=== PATIENT | male | born 1995 | race Hispanic/Latino ===

== ENCOUNTER 2018-01-19 22:16 | Emergency (ER) | payer SELFPAY ==
[2018-01-19 22:34] LABS: Bilirubin Negative (Negative); Blood, Urine Moderate (Negative); Clarity CLEAR (Clear); Glucose, Urine (Dipstick) Negative (Negative); Leukocyte Negative (Negative); Nitrite Negative (Negative); Protein, Urine (Dipstick) 30 mg/dL (Neg-Trace); Specific Gravity, Urine 1.037 (1.002-1.036)
[2018-01-19 22:36] LABS: Bacteria/HPF None Seen HPF (None Seen); Hyaline Casts/LPF 0-3 HYALINE CAST LPF (0-3 Hyaline); Pathc Cast-AUWi Flag 0.29 (0-2.49); RBC/HPF GREATER THAN 50-TNTC HPF (0-3); Squamous Epithelial 0-3 HPF (0-3); WBC/HPF 0-3 HPF (0-3)
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
[2018-01-20] MEDS ORDERED: Ketorolac Tromethamine 30 MG/ML VIAL ONE (00:10)
== END 2018-01-20 00:20 | disposition home or self-care (01) ==
LOC: ERS 22:16
DX: M54.5 Low back pain (principal); F17.220 Nicotine dependence, chewing tobacco, uncomplicated
CPT/HCPCS: 74176; 81003; 81015; 96374; J1885

== ENCOUNTER 2018-01-20 22:31 | Emergency (ER) | payer SELFPAY | END 2018-01-20 23:00 | disposition home or self-care (01) | LOC: ERS 22:31 | DX: M54.5 Low back pain (principal); F17.220 Nicotine dependence, chewing tobacco, uncomplicated | CPT/HCPCS: 99283 ==

== ENCOUNTER 2018-12-29 22:36 | Emergency (ER) | payer SELFPAY ==
[2018-12-29] MEDS ORDERED: Ibuprofen 800 MG TAB ONE (23:09)
== END 2018-12-29 23:16 | disposition home or self-care (01) ==
LOC: ERS 22:36
DX: S00.431A Contusion of right ear, initial encounter (principal); F17.220 Nicotine dependence, chewing tobacco, uncomplicated; W22.8XXA Striking against or struck by other objects, initial encounter
CPT/HCPCS: 99283

== ENCOUNTER 2019-02-14 00:26 | Emergency (ER) | payer SELFPAY ==
--- NOTE | 2019-02-14 07:54 | RAD ---
RIGHT HAND 3 VIEWS: FINDINGS: No evidence of fracture. No osseous abnormality. IMPRESSION: No acute finding. POS: [facility]
== END 2019-02-14 01:11 | disposition home or self-care (01) ==
LOC: ERS 00:26
DX: M77.9 Enthesopathy, unspecified (principal)

== ENCOUNTER 2019-02-20 23:33 | Emergency (ER) | payer SELFPAY ==
[2019-02-21] MEDS ORDERED: traMADol HCl 50 MG TAB ONE (00:43)
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
== END 2019-02-21 01:12 | disposition home or self-care (01) ==
LOC: ERS 23:33
DX: G44.309 Post-traumatic headache, unspecified, not intractable (principal)
CPT/HCPCS: 70450

== ENCOUNTER 2019-05-31 21:42 | Emergency (ER) | payer SELFPAY ==
--- NOTE | 2019-05-31 22:16 | RAD ---
XR Chest 1 View Portable HISTORY: Chest pain COMPARISON: 04/05/2014 study. FINDINGS: Heart size is within normal limits considering technique. Mediastinal structures are unrema rkable. The lungs are clear of infiltrates. No signs of failure. IMPRESSION: No active intrathoracic disease.
[2019-05-31] MEDS ORDERED: Naproxen 500 MG TAB ONE (22:29)
== END 2019-05-31 22:35 | disposition home or self-care (01) ==
LOC: ERS 21:42
DX: M94.0 Chondrocostal junction syndrome [Tietze] (principal)
CPT/HCPCS: 71045; 93005

== ENCOUNTER 2019-08-20 23:11 | Emergency (ER) | payer SELFPAY ==
--- NOTE | 2019-08-20 23:51 | RAD ---
CHEST ONE VIEW: 08/20/19 HISTORY: Chest pain. COMPARISON: Radiograph 05/31/19. FINDINGS: The lungs are clear. No pneumothorax. No effusion. The cardiac silhouette and mediastinal contours ar e within normal limits. No acute osseous abnormality. IMPRESSION: No acute intrathoracic abnormality. POS: [facility]
[2019-08-21 00:01] LABS: #Eosinphils 0.3 thou/uL (0.0-0.7); #Lymphocytes 2.4 thou/uL (1.20-3.40); #Monocytes 0.6 thou/uL (0.11-0.59); #Neutrophils 5.5 thou/uL (1.40-6.50); %Basophils 0.2 % (0.0-1.0); %Eosinophils 3.6 % (0.0-10.0); %Monocytes 7.2 % (0.0-10.0); %Neutrophils 62.1 % (42.0-75.0); Hemoglobin 15.8 g/dL (14.0-18.0); Mean Corpuscular HGB CONC 33.8 g/dL (32.0-36.0); Mean Corpuscular Hemoglobin 30.5 pg (27.0-31.0); Mean Corpuscular Volume 90.3 fL (78.0-98.0); Platelet Count 162 thou/uL (130-400); RBC Distribution Width 11.3 % (11.5-14.5); Red Blood Cell (RBC) Count 5.19 mill/uL (4.70-6.10); White Blood Cell (WBC) Count 8.8 thou/uL (4.8-10.8)
--- NOTE | 2019-08-21 00:05 | CT ---
CT BRAIN WITHOUT CONTRAST: 08/20/19 HISTORY: Arm pain, numbness and tingling. COMPARISON: CT brain 02/21/19. FINDINGS: No acute hemorrhage or infarct. No midline shift or mass effect. Ventricular size and extra-axial CSF spaces are normal. The calvarium is intact. The paranasal sinuses and mastoids are clear. IMPRESSION: No acute intracranial abnormality. POS: [facility]
[2019-08-21 00:21] LABS: ALT (SGPT) 29 U/L (8-55); AST (SGOT) 26 U/L (5-34); Albumin 4.8 g/dL (3.5-5.0); Alkaline Phosphatase 93 U/L (40-110); Anion Gap 14 mmol/L (10-20); BUN (Urea Nitrogen) 18 mg/dL (8.9-20.6); Bilirubin, Total 0.8 mg/dL (0.2-1.2); Calc. Creatinine Clearance 0 mL/min (70-130); Calcium 9.8 mg/dL (7.8-10.44); Carbon Dioxide 27 mmol/L (22-29); Chloride 102 mmol/L (98-107); Estimated GFR-MDRD 87; Globulin 3.7 g/dL (2.4-3.5); Glucose 74 mg/dL (70-105); Protein, Total 8.5 g/dL (6.0-8.3); Sodium 139 mmol/L (136-145)
== END 2019-08-21 00:42 | disposition home health service (06) ==
LOC: ERS 23:11
DX: R07.9 Chest pain, unspecified (principal); R20.2 Paresthesia of skin
CPT/HCPCS: 70450; 71045; 80053; 84484; 85025; 85379; 93005; 96360

== ENCOUNTER 2019-09-01 01:13 | Emergency (ER) | payer SELFPAY ==
[2019-09-01] MEDS ORDERED: Ketorolac Tromethamine 30 MG/ML VIAL ONE (01:27)
[2019-09-01] MEDS ORDERED: Metoclopramide HCl 10 MG/2 ML VIAL ONE (01:27)
== END 2019-09-01 02:22 | disposition home or self-care (01) ==
LOC: ERS 01:13
DX: R06.00 Dyspnea, unspecified (principal); R51 Headache
CPT/HCPCS: 96365; 96375; J1885; J2765

== ENCOUNTER 2020-05-03 04:37 | Emergency (ER) | payer SELFPAY ==
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
== END 2020-05-03 05:19 | disposition home or self-care (01) ==
LOC: ERS 04:37
DX: S62.316A Displaced fracture of base of fifth metacarpal bone, right hand, initial encounter for closed fracture (principal); X58.XXXA Exposure to other specified factors, initial encounter
CPT/HCPCS: 29125

== ENCOUNTER 2020-08-15 23:09 | Emergency (ER) | payer SELFPAY ==
[2020-08-16] MEDS ORDERED: Ibuprofen 800 MG TAB ONE (03:28)
[2020-08-16] MEDS ORDERED: Acetaminophen 500 MG TAB ONE (03:28)
== END 2020-08-16 03:01 | disposition home or self-care (01) ==
LOC: ERS 23:09
DX: M25.562 Pain in left knee (principal)

== ENCOUNTER 2020-08-20 01:29 | Observation (INO) | payer OTHER, SELFPAY ==
[2020-08-20] MEDS ORDERED: diphenhydrAMINE 50 MG/ML VIAL ONE (02:43)
[2020-08-20] MEDS ORDERED: Ketorolac Tromethamine 30 MG/ML VIAL ONE (02:43)
[2020-08-20] MEDS ORDERED: Metoclopramide HCl 10 MG/2 ML VIAL ONE (02:43)
[2020-08-20 02:47] LABS: #Basophils 0.1 thou/uL (0.0-0.2); #Eosinphils 0.1 thou/uL (0.0-0.7); #Lymphocytes 2.1 thou/uL (1.20-3.40); #Monocytes 0.8 thou/uL (0.11-0.59); #Neutrophils 6.5 thou/uL (1.40-6.50); %Basophils 0.7 % (0.0-1.0); %Eosinophils 0.9 % (0.0-10.0); %Lymphocytes 21.5 % (21.0-51.0); %Monocytes 8.7 % (0.0-10.0); %Neutrophils 68.2 % (42.0-75.0); Hemoglobin 16.1 g/dL (14.0-18.0); Mean Corpuscular HGB CONC 35.4 g/dL (32.0-36.0); Mean Corpuscular Hemoglobin 32.2 pg (27.0-31.0); Mean Corpuscular Volume 90.8 fL (78.0-98.0); Platelet Count 147 thou/uL (130-400); RBC Distribution Width 11.9 % (11.5-14.5); Red Blood Cell (RBC) Count 5.01 mill/uL (4.70-6.10); White Blood Cell (WBC) Count 9.5 thou/uL (4.8-10.8)
[2020-08-20 02:54] LABS: PTT 30.7 sec (22.9-36.1); Prothrombin Time 13.2 sec (12.0-14.7)
[2020-08-20 03:07] LABS: ALT (SGPT) 22 U/L (8-55); AST (SGOT) 18 U/L (5-34); Albumin 4.4 g/dL (3.5-5.0); Alkaline Phosphatase 96 U/L (40-110); Anion Gap 14 mmol/L (10-20); BUN (Urea Nitrogen) 21 mg/dL (8.9-20.6); CK (CPK) 266 U/L (30-200); Calc. Creatinine Clearance 0 mL/min (70-130); Calcium 9.8 mg/dL (7.8-10.44); Carbon Dioxide 24 mmol/L (22-29); Chloride 104 mmol/L (98-107); Globulin 3.6 g/dL (2.4-3.5); Glucose 98 mg/dL (70-105); Potassium 3.6 mmol/L (3.5-5.1); Sodium 138 mmol/L (136-145)
[2020-08-20] MEDS ORDERED: Aspirin Chewable 81 MG TAB ONE (03:44)
[2020-08-20 08:43] LABS: SARS-CoV-2 PCR by NAA Not Detected (NotDetected)
[2020-08-20] MEDS: Aspirin 81 mg Enteric Coated Tablet PO SCH (10:45)
[2020-08-20] MEDS ORDERED: Iopamidol 370 76% 100 ML VIAL ONE (13:00)
[2020-08-20 16:00] LABS: Prothrombin Time 13.6 sec (12.0-14.7)
[2020-08-20 16:01] LABS: PTT 30.4 sec (22.9-36.1)
[2020-08-20 16:02] LABS: D-Dimer Test Less than 0.27 *mcg/mL (0.27-0.43)
[2020-08-20 17:48] VITALS: BMI 28.9
[2020-08-21 06:45] LABS: Cardiac Risk 4.3 (Less than 4.5)
[2020-08-21] MEDS: Aspirin 81 mg Enteric Coated Tablet PO SCH (09:11)
[2020-08-21 10:19] LABS: Bacteria/HPF None Seen HPF (None Seen); Bilirubin Negative (Negative); Blood, Urine Negative (Negative); Clarity Clear (Clear); Glucose, Urine (Dipstick) Normal (Negative); Ketone, Urine Negative (Negative); Leukocyte Negative Leu/uL (Negative); Nitrite Negative (Negative); Protein, Urine (Dipstick) Negative (Neg-Trace); RBC/HPF 0-3 HPF (0-3); Specific Gravity, Urine 1.026 (1.002-1.036); Squamous Epithelial 0-3 HPF (0-3); Urobilinogen Normal mg/dL (Less than 2); WBC/HPF 0-3 HPF (0-3); pH, Urine 5.5 (5.0-9.0)
[2020-08-21 10:21] LABS: Factor VIII Test 130.3 % ACTIVE (56-157); Protein C Activity 96 % (78-152)
[2020-08-21 10:36] LABS: Amphetamine Detected (NotDetected); Barbiturates Screen Not Detected (NotDetected); Benzodiazepine Screen Not Detected (NotDetected); Cocaine Metabolite Screen Detected (NotDetected); Medtox Control Line Valid? VALID (VALID); Medtox Reader # READER 4; Methadone Not Detected (NotDetected); Methamphetamine Detected (NotDetected); Opiate Screen Not Detected (NotDetected); Oxycodone Screen Not Detected (NotDetected); Phencyclidine (PCP) Not Detected (NotDetected); THC/Cannabinoid Screen Not Detected (NotDetected); Tricyclic Screen Not Detected (NotDetected)
[2020-08-21 11:41] VITALS: BP 128/74; TEMP 98.1
[2020-08-21 12:41] LABS: HEX PHOS LA Tube 2 41.8 SEC; Hexagonal Phospholipid Neut 0.2 SEC (0-8.0)
[2020-08-24 17:38] LABS: Cardiolipin IgA Ab 1.9 APL-U/mL (<14 Negative); Cardiolipin IgG Ab 0.8 GPL-U/mL (<10 Negative); Cardiolipin IgM Ab 2.4 MPL-U/mL (<10 Negative); EliA APS New Method **** NEW METHOD ****
[2020-08-31 19:36] LABS: Activated Protein C Resistance 2.8 ratio (.)
== END 2020-08-21 14:35 | disposition home or self-care (01) ==
LOC: ERS 01:29 → ERHOLD 04:12 → 2SE 17:02
PROVIDERS: ADMIT Internal Medicine; ATTEND Internal Medicine
DX: R53.1 Weakness (principal); R25.2 Cramp and spasm; R20.2 Paresthesia of skin; F19.10 Other psychoactive substance abuse, uncomplicated; I10 Essential (primary) hypertension; R47.81 Slurred speech; F17.200 Nicotine dependence, unspecified, uncomplicated; G43.909 Migraine, unspecified, not intractable, without status migrainosus; Z20.822 Contact with and (suspected) exposure to COVID-19
CPT/HCPCS: 36415; 36416; 70450; 70496; 70498; 70551; 80053; 80061; 80306; 81001; 82550; 83090; 84484; 85025; 85240; 85300; 85303; 85305; 85307; 85379; 85598; 85610; 85730; 86147; 87635; 93005; 93306; 95712; 95819; 95957; 96365; 96366; 96375; G0378; J1200; J1885; J2765; Q9967; U0003; U0005

== ENCOUNTER 2020-11-06 21:58 | Emergency (ER) | payer SELFPAY ==
[2020-11-06] MEDS ORDERED: HYDROcodone/Acetaminophen 10/325 mg Tablet ONE (23:07)
== END 2020-11-06 23:20 | disposition home or self-care (01) ==
LOC: ERS 21:58
DX: S83.92XA Sprain of unspecified site of left knee, initial encounter (principal); X50.9XXA Other and unspecified overexertion or strenuous movements or postures, initial encounter

== ENCOUNTER 2021-04-29 19:43 | Emergency (ER) | payer SELFPAY | END 2021-04-29 21:58 | disposition home or self-care (01) | LOC: ERS 19:43 | DX: S60.051A Contusion of right little finger without damage to nail, initial encounter (principal); I10 Essential (primary) hypertension; G43.909 Migraine, unspecified, not intractable, without status migrainosus; F17.220 Nicotine dependence, chewing tobacco, uncomplicated ==

== ENCOUNTER 2021-11-05 21:19 | Emergency (ER) | payer SELFPAY | END 2021-11-05 22:39 | disposition left against medical advice (07) | LOC: ERS 21:19 | DX: Z53.21 Procedure and treatment not carried out due to patient leaving prior to being seen by health care provider (principal) ==

== ENCOUNTER 2022-08-29 19:50 | Emergency (ER) | payer BC, SELFPAY | END 2022-08-29 22:38 | disposition home or self-care (01) | LOC: ERS 19:50 | DX: S05.02XA Injury of conjunctiva and corneal abrasion without foreign body, left eye, initial encounter (principal); I10 Essential (primary) hypertension; F17.220 Nicotine dependence, chewing tobacco, uncomplicated; W22.8XXA Striking against or struck by other objects, initial encounter; Z79.899 Other long term (current) drug therapy | CPT/HCPCS: 99283 ==

== ENCOUNTER 2023-04-13 17:50 | Emergency (ER) | payer SELFPAY ==
[2023-04-13] MEDS ORDERED: Fluorescein Opthalmic Strip ONE (18:15)
[2023-04-13] MEDS ORDERED: Proparacaine 0.5% Opth 15 ML BOT ONE (18:15)
== END 2023-04-13 18:56 | disposition home or self-care (01) ==
LOC: ERS 17:50
DX: S05.02XA Injury of conjunctiva and corneal abrasion without foreign body, left eye, initial encounter (principal); I10 Essential (primary) hypertension; W31.1XXA Contact with metalworking machines, initial encounter; Y99.0 Civilian activity done for income or pay; Z87.891 Personal history of nicotine dependence
CPT/HCPCS: 99283